=== PATIENT | female | born 1955 | race Caucasian/White ===

== ENCOUNTER 2017-05-03 00:45 | Emergency (ER) | payer OTHER ==
[2017-05-03] MEDS: HYDROCODONE/APAP (10/325) TAB PO (01:17)
[2017-05-03] MEDS ORDERED: LIDOCAINE 1% (MDV) 20 ML INJ (02:14)
[2017-05-03] MEDS ORDERED: LIDOCAINE 2% JELLY 5 ML TOP (04:00)
== END 2017-05-03 03:30 | disposition home or self-care (01) ==
LOC: E/R 00:45
DX: S01.81XA Laceration without foreign body of other part of head, initial encounter (principal); J45.909 Unspecified asthma, uncomplicated; F17.210 Nicotine dependence, cigarettes, uncomplicated; W01.0XXA Fall on same level from slipping, tripping and stumbling without subsequent striking against object, initial encounter; Y92.9 Unspecified place or not applicable
CPT/HCPCS: 12013; 70450; 99284-25